=== PATIENT | female | born 1980 | race Two or more races ===

== ENCOUNTER 2017-03-02 05:04 | Emergency (ER) | payer MEDICAID ==
[~2017-03-02] VITALS: Ht 152.4 cm; Wt 61.2 kg
[~2017-03-02 05:04] MED LIST: ALPR0.25 PO; DICY20TA64 PO; OMEP20TA34 PO; POLY335015 PO; PROMETHAZINE 25 MG TABLET PO; SERT-160 PO; [UNRECOGNIZED DRUG - OTHER] PO
[2017-03-02] MEDS ORDERED: ONDANSETRON HCL 4 MG/2 ML VIAL ONE (05:56)
[2017-03-02] MEDS ORDERED: ONDANSETRON HCL 4 MG/2 ML VIAL IV ONE (06:00)
[2017-03-02 06:30] LABS: Basophils # (auto) 0 uL; Basophils % (auto) 0.3 % (0.0-2.0); DEFINITIVE VIEW TRANSMISSION; Eosinophils # (auto) 0.2 uL; Eosinophils % (auto) 1.5 % (0.0-7.0); Hematocrit 29.6 % (36.0-46.0); Lymphocytes # (auto) 2.2 uL; Lymphocytes % (auto) 19.7 % (10.0-50.0); Mean Corpuscular Hgb Conc. 30.5 g/dL (32.0-36.0); Mean Corpuscular Volume 68.8 fL (80.0-100.0); Mean Platelet Volume 8.9 fL (7.4-10.4); Monocytes # (auto) 0.6 uL; Monocytes % (auto) 5.2 % (0.0-12.0); Neutrophils % (auto) 73.3 % (37.0-80.0); Platelet Count (auto) 445 10^3/uL (140-450); White Blood Cell 10.9 10^3/uL (4.4-10.8)
[2017-03-02 06:43] VITALS: BP 176/46
[2017-03-02] MEDS ORDERED: MORPHINE SULFATE 4 MG/ML SYRG IV ONE (07:00)
[2017-03-02] MEDS ORDERED: NALBUPHINE HCL 10 MG/1ml INJECTION IV ONE (07:00)
[2017-03-02] MEDS ORDERED: METOCLOPRAMIDE HCL 5MG/ml INJ 2ml VIAL IV ONE (07:00)
[2017-03-02] MEDS ORDERED: SODIUM CHLORIDE 0.9% 1,000 ML IV ONE (07:05)
[2017-03-02 07:16] LABS: BUN/Creatinine Ratio 15.1; Bilirubin, Total 0.2 mg/dL (0.2-1.0); Calcium 8.6 mg/dL (8.5-10.1); Potassium 3.1 mmol/L (3.5-5.1); Total Protein 7.5 g/dL (6.4-8.2)
[2017-03-02 07:43] LABS: Urine Bilirubin Negative (Negative); Urine Color Orange (Yellow); Urine Glucose Normal (Normal); Urine Ketone Negative (Negative); Urine Nitrite Negative (Negative); Urine RBC 2691 /hpf (0 - 4); Urine Squamous Epithelial Cell FEW /hpf (<5); Urine Urobilinogen Normal (Negative); Urine pH 6.5 (5.0-8.0)
[2017-03-02 07:44] LABS: Urine Blood Trace /uL (Negative)
== END 2017-03-02 09:41 | disposition left against medical advice (07) ==
LOC: ER 05:06
DX: D64.9 Anemia, unspecified (principal); R11.10 Vomiting, unspecified; Z88.6 Allergy status to analgesic agent; F17.210 Nicotine dependence, cigarettes, uncomplicated; F12.10 Cannabis abuse, uncomplicated; K21.9 Gastro-esophageal reflux disease without esophagitis; Z87.11 Personal history of peptic ulcer disease; Z79.899 Other long term (current) drug therapy
CPT/HCPCS: 36415; 71010; 74176; 80053; 81001; 81025; 84702; 85025; 96374; 96375; 99285; J2300; J2405; J2765; J7030

== ENCOUNTER 2017-03-06 06:35 | Emergency (ER) | payer MEDICAID ==
[~2017-03-06] VITALS: Ht 152.4 cm; Wt 61.2 kg
[2017-03-06] MEDS ORDERED: SODIUM CHLORIDE 0.9% 1,000 ML IV ONE (07:30)
[2017-03-06] MEDS ORDERED: ONDANSETRON HCL 4 MG/2 ML VIAL IV ONE ×2 (07:30→10:15)
[2017-03-06 07:31] LABS: Basophils # (auto) 0.2 uL; Basophils % (auto) 1.9 % (0.0-2.0); DEFINITIVE VIEW TRANSMISSION; Eosinophils # (auto) 0.2 uL; Eosinophils % (auto) 1.3 % (0.0-7.0); Hematocrit 30.8 % (36.0-46.0); Hemoglobin 9.6 g/dL (12.2-16.2); INR 1.07 (0.9-1.15); Lymphocytes # (auto) 2.7 uL; Lymphocytes % (auto) 22.2 % (10.0-50.0); Mean Corpuscular Hemoglobin 21.3 pg (28.0-32.0); Mean Corpuscular Hgb Conc. 31.2 g/dL (32.0-36.0); Mean Corpuscular Volume 68.3 fL (80.0-100.0); Monocytes # (auto) 0.6 uL; Monocytes % (auto) 4.7 % (0.0-12.0); Neutrophils # (auto) 8.5 uL; Neutrophils % (auto) 69.9 % (37.0-80.0); Partial Thromboplastin Time 21.2 sec (22.64-33.71); Platelet Count (auto) 470 10^3/uL (140-450); Prothrombin Time 11.6 sec (9.37-12.3); Red Cell Distribution Width 18.6 % (11.6-16.0); White Blood Cell 12.1 10^3/uL (4.4-10.8)
[2017-03-06 07:36] LABS: Albumin 4.3 g/dL (3.4-5.0); BUN/Creatinine Ratio 21.9; Bilirubin, Total 0.5 mg/dL (0.2-1.0); Calcium 9.1 mg/dL (8.5-10.1); Total Protein 8.1 g/dL (6.4-8.2)
[2017-03-06 07:47] LABS: Potassium 2.8 mmol/L (3.5-5.1)
[2017-03-06] MEDS ORDERED: DIAZEPAM 5 MG/ML 2ML SYRG IV ONE (08:00)
[2017-03-06] MEDS ORDERED: MORPHINE SULFATE 4 MG/ML SYRG IV ONE (08:00)
[2017-03-06] MEDS ORDERED: cefTRIAXone 1GM/50ML D5W 50 ML IV ONE (08:15)
[2017-03-06] MEDS ORDERED: KETOROLAC TROMETH 30 MG/ML 1ML VIAL IV ONE (08:15)
[2017-03-06] MEDS: POTASSIUM CHL 20MEQ/100ML 100 ML IV SCH ×2 (08:41→10:00)
[2017-03-06] MEDS ORDERED: METOCLOPRAMIDE HCL 5MG/ml INJ 2ml VIAL IV ONE (08:45)
[2017-03-06 08:58] LABS: Urine Bilirubin Negative (Negative); Urine Color Yellow (Yellow); Urine Glucose Normal (Normal); Urine Mucus FEW (None Seen); Urine Nitrite Negative (Negative); Urine RBC 275 /hpf (0 - 4); Urine Squamous Epithelial Cell FEW /hpf (<5)
[2017-03-06 09:01] LABS: Urine Blood 2+ /uL (Negative); Urine Ketone 2+ (Negative)
[2017-03-06] MEDS ORDERED: LORazepam 2MG/ML-1ML VIAL IV ONE (10:15)
[2017-03-06 10:23] VITALS: BP 144/89
[2017-03-06] MEDS ORDERED: POTASSIUM CHLORIDE 8 MEQ TAB PO ONE (11:00)
[2017-03-06] MEDS ORDERED: POTASSIUM CHL 20 Meq TABLET PO ONE (11:00)
== END 2017-03-06 11:17 | disposition home or self-care (01) ==
LOC: ER 06:35
DX: E87.6 Hypokalemia (principal); K51.90 Ulcerative colitis, unspecified, without complications; F17.210 Nicotine dependence, cigarettes, uncomplicated; F12.10 Cannabis abuse, uncomplicated; K21.9 Gastro-esophageal reflux disease without esophagitis; Z87.11 Personal history of peptic ulcer disease; Z88.6 Allergy status to analgesic agent; Z79.899 Other long term (current) drug therapy
CPT/HCPCS: 36415; 80053; 81001; 82150; 83690; 84702; 85025; 85610; 85730; 96361; 96365; 96366; 96368; 96375; 96376; 99285; J0696; J1885; J2060; J2405; J2765; J3360; J3480; J7030

== ENCOUNTER 2017-10-27 14:53 | Emergency (ER) | payer MEDICAID ==
[~2017-10-27] VITALS: Ht 152.4 cm; Wt 52.2 kg
[~2017-10-27 14:53] MED LIST changes: +DICY20TA38 PO; -DICY20TA64 PO
[2017-10-27 15:24] LABS: Eosinophils # (auto) 0.2 uL; Monocytes # (auto) 0.5 uL; Platelet Count (auto) 283 10^3/uL (140-450)
[2017-10-27 15:25] LABS: Basophils # (auto) 0.3 uL; Basophils % (auto) 2.8 % (0.0-2.0); Eosinophils % (auto) 1.6 % (0.0-7.0); Hematocrit 25.3 % (36.0-46.0); Hemoglobin 7.5 g/dL (12.2-16.2); Lymphocytes # (auto) 1.6 uL; Mean Corpuscular Hemoglobin 18.6 pg (28.0-32.0); Mean Corpuscular Hgb Conc. 29.5 g/dL (32.0-36.0); Mean Corpuscular Volume 63.1 fL (80.0-100.0); Mean Platelet Volume 8.2 fL (6.9-10.8); Monocytes % (auto) 4.7 % (0.0-12.0); Neutrophils # (auto) 8.2 uL; Neutrophils % (auto) 75.9 % (37.0-80.0); White Blood Cell 10.8 10^3/uL (4.4-10.8)
[2017-10-27 15:45] LABS: Albumin 4.5 g/dL (3.4-5.0); BUN/Creatinine Ratio 14.3; Bilirubin, Total 0.3 mg/dL (0.2-1.0); Calcium 8.9 mg/dL (8.5-10.1); Potassium 3.7 mmol/L (3.5-5.1); Total Protein 8.4 g/dL (6.4-8.2)
[2017-10-27 17:32] LABS: Hypochromia Marked; Microcytosis Marked; Platelet Estimate Adequate
[2017-10-27 17:33] LABS: Ovalocytes MODERATE
[2017-10-27 17:34] LABS: Tear Drop Cells MODERATE
[2017-10-27] MEDS ORDERED: SODIUM CHLORIDE 0.9% 1,000 ML IVB ONE (17:55)
[2017-10-27 18:18] LABS: Magnesium 2.1 mg/dL (1.6-2.6)
[2017-10-27 18:24] LABS: INR 1.05 (0.9-1.15); Prothrombin Time 11.4 sec (9.37-12.3)
[2017-10-27 19:12] LABS: Urine Bilirubin Negative (Negative); Urine Blood Negative /uL (Negative); Urine Color Colorless (Yellow); Urine Glucose Normal (Normal); Urine Ketone Negative (Negative); Urine Nitrite Negative (Negative); Urine RBC <1 /hpf (0 - 4); Urine Squamous Epithelial Cell FEW /hpf (<5); Urine Urobilinogen Normal (Negative)
[2017-10-27 22:50] VITALS: BP 115/78
[2017-10-27 23:05] VITALS: BP 131/57
[2017-10-27 23:27] VITALS: BP 121/78
[2017-10-27 23:38] VITALS: BP 135/84
[2017-10-28] VITALS (7 sets, daily range): BP systolic 108–126; BP diastolic 60–84
[2017-10-28] MEDS ORDERED: HYDROcodone-ACET 10/325MG TAB PO ONE (00:45)
== END 2017-10-28 03:11 | disposition home or self-care (01) ==
LOC: ER 15:10
DX: D25.9 Leiomyoma of uterus, unspecified (principal); K58.9 Irritable bowel syndrome, unspecified; D50.0 Iron deficiency anemia secondary to blood loss (chronic); F17.210 Nicotine dependence, cigarettes, uncomplicated; K21.9 Gastro-esophageal reflux disease without esophagitis; Z88.6 Allergy status to analgesic agent; Z79.899 Other long term (current) drug therapy
CPT/HCPCS: 36415; 36430; 76856; 80053; 81001; 83690; 83735; 84702; 85025; 85610; 85730; 86850; 86900; 86901; 86920; 96360; 96361; 99285; P9016

== ENCOUNTER 2017-11-07 13:43 | Emergency (ER) | payer MEDICAID ==
[~2017-11-07] VITALS: Ht 152.4 cm; Wt 45.4 kg
[2017-11-07 14:34] LABS: Basophils # (auto) 0.2 uL; Mean Platelet Volume 9.2 fL (6.9-10.8); Monocytes # (auto) 0.6 uL; Monocytes % (auto) 6.3 % (0.0-12.0)
[2017-11-07 14:38] LABS: Basophils % (auto) 1.7 % (0.0-2.0); Eosinophils # (auto) 0.1 uL; Eosinophils % (auto) 0.6 % (0.0-7.0); Hematocrit 36.7 % (36.0-46.0); Hemoglobin 11.6 g/dL (12.2-16.2); Lymphocytes % (auto) 21.1 % (10.0-50.0); Mean Corpuscular Hgb Conc. 31.6 g/dL (32.0-36.0); Mean Corpuscular Volume 69.5 fL (80.0-100.0); Neutrophils # (auto) 6.6 uL; Neutrophils % (auto) 70.3 % (37.0-80.0); Nucleated Red Blood Cells % 0.2 %; Platelet Count (auto) 330 10^3/uL (140-450); White Blood Cell 9.3 10^3/uL (4.4-10.8)
[2017-11-07 14:40] LABS: Red Cell Distribution Width 27.2 % (11.8-14.3)
[2017-11-07 14:48] LABS: Urine Bilirubin Negative (Negative); Urine Blood 3+ /uL (Negative); Urine Color Yellow (Yellow); Urine Glucose Normal (Normal); Urine Ketone 3+ (Negative); Urine Mucus FEW (None Seen); Urine Nitrite Negative (Negative); Urine RBC 230 /hpf (0 - 4); Urine Squamous Epithelial Cell FEW /hpf (<5); Urine pH 6.5 (5.0-8.0)
[2017-11-07 14:55] LABS: Albumin 4.5 g/dL (3.4-5.0); Bilirubin, Total 0.6 mg/dL (0.2-1.0); Calcium 9.3 mg/dL (8.5-10.1); Total Protein 8.5 g/dL (6.4-8.2)
[2017-11-07 15:23] LABS: Potassium 2.8 mmol/L (3.5-5.1)
[2017-11-07 17:32] LABS: Anisocytosis Moderate; Burr Cells FEW; Platelet Estimate Adequate
[2017-11-07 17:33] LABS: Large Platelets FEW; Microcytosis Marked; Ovalocytes FEW; Poikilocytosis Slight
[2017-11-07] MEDS ORDERED: PANTOPRAZOLE 40 MG/10 ML VIAL IV STA (18:01)
[2017-11-07] MEDS ORDERED: SODIUM CHLORIDE 0.9% 1,000 ML IVB ONE (18:01)
[2017-11-07] MEDS ORDERED: HYDROmorphone HCL 2 MG/ML VL IV ONE (18:15)
[2017-11-07] MEDS ORDERED: PROCHLORPERAZINE EDISYLATE 5 MG/ML 2ML VIAL IV ONE (18:15)
[2017-11-07] MEDS ORDERED: POTASSIUM CHL 20MEQ/50ML 50 ML IV ONE (18:30)
[2017-11-07 21:27] VITALS: BP 120/81
== END 2017-11-07 22:15 | disposition home or self-care (01) ==
LOC: ER 13:43
DX: E86.0 Dehydration (principal); K52.9 Noninfective gastroenteritis and colitis, unspecified; K21.9 Gastro-esophageal reflux disease without esophagitis; E78.00 Pure hypercholesterolemia, unspecified; F17.210 Nicotine dependence, cigarettes, uncomplicated; Z87.11 Personal history of peptic ulcer disease; Z83.3 Family history of diabetes mellitus; Z82.49 Family history of ischemic heart disease and other diseases of the circulatory system; Z80.9 Family history of malignant neoplasm, unspecified
CPT/HCPCS: 36415; 80053; 81001; 81025; 85025; 94761; 96365; 96366; 96375; 99285; C9113; J0780; J1170; J7030